=== PATIENT | male | born 1955 | race American Indian/Alaskan Native ===

== ENCOUNTER 2018-07-15 09:28 | Day surgery (SDC) | payer MEDICARE ==
[2018-07-15 11:11] VITALS: BMI 31.0
[2018-07-15] MEDS ORDERED: Gentamicin 80 mg in 0.9% NS 160 MG/200 ML BAG IVPB ONE (11:14)
[2018-07-15] MEDS ORDERED: Ciprofloxacin 400mg/200ml D5W 400 MG/200 ML BAG IVPB ONE (11:14)
[2018-07-15] MEDS ORDERED: Lidocaine 2% Jelly (Uro-Jet) ONE (11:14)
[2018-07-15 11:21] LABS: BASO # 0.1 K/uL (0.0-0.2); EOS # 0.2 K/uL (0.0-0.7); EOS % 3.7 % (0.0-4.0); HEMOGLOBIN 14.4 g/dL (12.0-18.0); LYMPH # 1.5 K/uL (1.0-4.3); LYMPH % 28.2 % (20.0-40.0); MEAN CELL VOLUME 88.5 fL (80.0-94.0); MEAN CORPUSCULAR HEMOGLOBIN 30.1 pg (27.0-31.0); MEAN PLATELET VOLUME 8.9 fL (7.2-11.7); MONO # 0.6 K/uL (0.0-0.8); MONO % 10.4 % (0.0-10.0); NEUT % 56.7 % (50.0-75.0); RBC 4.78 Mil/uL (4.40-5.90); RED CELL DISTRIBUTION WIDTH 13.8 % (11.5-14.5); WHITE BLOOD COUNT 5.3 K/uL (4.8-10.8)
[2018-07-15 11:38] LABS: ALB/GLOB RATIO 1.4 (1.0-2.1); ALBUMIN 4.9 g/dL (3.5-5.0); CALCIUM 10.1 mg/dl (8.6-10.4)
[2018-07-15 11:43] LABS: SQUAMOUS EPITHIAL 1 /hpf (0-5); URINE BILIRUBIN NEGATIVE (NEGATIVE); URINE BLOOD NEGATIVE (NEGATIVE); URINE CLARITY Hazy (Clear); URINE COLOR Yellow (YELLOW); URINE GLUCOSE (UA) NORMAL (Normal); URINE LEUKOCYTE ESTERASE NEG Leu/uL (Negative); URINE PROTEIN 1+ mg/dL (NEGATIVE); URINE UROBILINOGEN NORMAL mg/dL (0.2-1.0)
[2018-07-15] MEDS ORDERED: Midazolam 2 MG/2 ML VIAL ONE (11:49)
[2018-07-15] MEDS ORDERED: Propofol 10 mg/ml Inj (20 ML) ONE (11:49)
--- NOTE | 2018-07-15 12:11 | PCM.SURG1 ---
Surgeon's Initial Post Op Note - Surgeon's Notes Surgeon: Meryl Retail Representative: gisell Type of Anesthesia: IV Sedation Anesthesia Administered By: staff Pre-Operative Diagnosis: Urinary incontence Operative Findings: BPH w risidual apical tissue Post-Operative Diagnosis: Bph with risidual apical tissue Operation Performed: cystoscopy Specimen/Specimens Removed: na Estimated Blood Loss: EBL {In ML}: 0 Blood Products Given: N/A Drains Used: No Drains Post-Op Condition: Good Date of Surgery/Procedure: 07/15/18 Time of Surgery/Procedure: 12:10
[2018-07-15] MEDS ORDERED: Lactated Ringer's 1,000 ML IV ONE (12:12)
[2018-07-15 13:06] VITALS: RESP 18
[2018-07-15 13:47] VITALS: BP 163/92; PULSE 62; TEMP 97.8; O2SAT 98
--- NOTE | 2018-07-16 20:56 | OP ---
PROCEDURE DATE: 07/15/2018 PREOPERATIVE DIAGNOSIS: Urinary incontinence. POSTOPERATIVE DIAGNOSIS: Urinary incontinence secondary to residual prostatic tissue. PROCEDURE: A cystopanendoscopy. DESCRIPTION OF PROCEDURE: Prior to the procedure, a detailed informed consent was obtained. The patient was advised that there is a small urethral stricture. This will be dilated at the same time. If not, further procedures may be necessary and he was advised that we may not ascertain the cause of his incontinence. The patient was cystoscoped with a #21 Storz panendoscope. The pendulous and membranous urethras were normal. The prostatic urethra showed residual prostate tissue at the apex proximal to the verumontanum. There was no evidence of urethral stricture or tumor. The bladder was entered atraumatically and there was +3 trabeculation. No evidence of urothelial tumors or stones. Based on the above findings, it appears that the patient's incontinence may be due to this residual tissue. He is a candidate for GreenLight laser or medical therapy. Arvind Sheth MD
== END 2018-07-15 13:40 | disposition home or self-care (01) ==
LOC: C.SDS 09:28
PROVIDERS: ATTEND Urology
DX: N40.1 Benign prostatic hyperplasia with lower urinary tract symptoms (principal); N39.498 Other specified urinary incontinence
CPT/HCPCS: 36415; 52000; 80053; 81001; 82948; 84153; 85025; 87086; 88104; J0744; J1580; J7120

== ENCOUNTER 2018-08-05 11:44 | Day surgery (SDC) | payer MEDICARE ==
[2018-08-05] MEDS ORDERED: Gentamicin 160 MG in Sodium Chloride 0.9% 100 ML IVPB ONE (12:25)
[2018-08-05 12:28] VITALS: BMI 30.4
[2018-08-05 12:41] VITALS: RESP 18
[2018-08-05] MEDS ORDERED: Ciprofloxacin 400mg/200ml D5W 400 MG/200 ML BAG IVPB ONE (13:58)
[2018-08-05] MEDS ORDERED: Midazolam 2 MG/2 ML VIAL ONE (14:11)
[2018-08-05] MEDS ORDERED: Propofol 10 mg/ml Inj (20 ML) ONE (14:11)
[2018-08-05] MEDS ORDERED: HYDROmorphone 0.5 mg/0.5 ml ISec IVP PRN (14:33)
--- NOTE | 2018-08-05 14:33 | PCM.SURG1 ---
Surgeon's Initial Post Op Note - Surgeon's Notes Surgeon: loida Meal Packer: gisell Type of Anesthesia: General LMA Anesthesia Administered By: staff Pre-Operative Diagnosis: Urinary incontence/BPH/harkins Operative Findings: Apical prostate tissue/HARKINS Post-Operative Diagnosis: same Operation Performed: TULAP Specimen/Specimens Removed: N/A Estimated Blood Loss: EBL {In ML}: 0 Blood Products Given: N/A Drains Used: No Drains Post-Op Condition: Good Date of Surgery/Procedure: 08/05/18 Time of Surgery/Procedure: 14:32
[2018-08-05 16:11] VITALS: BP 182/79; PULSE 89; TEMP 97; O2SAT 100
--- NOTE | 2018-08-05 22:43 | OP ---
PROCEDURE DATE: 08/05/2018 PREOPERATIVE DIAGNOSES: Urinary incontinence/benign prostatic hypertrophy with residual apical tissue. POSTOPERATIVE DIAGNOSES: Urinary incontinence/benign prostatic hypertrophy with residual apical tissue. PROCEDURE: Transurethral laser ablation of the prostate (GreenLight laser vaporization of prostate tissue). SURGEON: Dr. Arvind Sheth Jr. FINDINGS: Significant amount of apical prostate tissue, proximal to the verumontanum and compensatory speculation of the bladder with evidence of previous prostate procedure. PROCEDURE IN DETAIL: Informed consent was obtained for the patient. He is fully aware that this procedure may not cure his incontinence and that his incontinence may continue. We reviewed alternate methods of treatment with the patient, the patient agreed to accept the risks of this procedure and proceed with procedure after a full explanation of risks, complications, benefits, and alternatives had been obtained. He was brought into the room and a time out was taken according to the rules and regulations of [facility]. The patient was draped and prepped in the usual manner. Previous cystoscopic findings were confirmed and then the laser resectoscope was inserted in the cystoscope sheath and the laser fiber was inserted. The verumontanum was localized as well as the external sphincter as well as the bladder neck. The left lateral lobe of residual apical tissue was vaporized first with care to avoid injury to the external sphincter verumontanum or bladder neck, none occurred. The left lateral lobe apical tissue was then vaporized. This resulted in the smooth voiding channel with no evidence of bladder outlet obstruction. The patient tolerated this procedure well and was sent to the recovery room in good condition after a two-way 5 mL catheter was inserted. Detailed postoperative instructions plus prescriptions for Tofranil, Ditropan and Cipro were given to the patient. Followup on was recommended and the patient agreed. Arvind Sheth MD
== END 2018-08-05 16:23 | disposition home or self-care (01) ==
LOC: C.SDS 11:44
PROVIDERS: ATTEND Urology
DX: N40.1 Benign prostatic hyperplasia with lower urinary tract symptoms (principal); N39.498 Other specified urinary incontinence
CPT/HCPCS: 52648; 82948; J0744; J1170